=== PATIENT | male | born 1965 | race Caucasian/White ===

== ENCOUNTER 2023-09-19 08:55 | Outpatient (CLI) | payer BC, SELFPAY ==
--- NOTE | ~2023-09-19 | US_ITS ---
EXAMINATION: US thyroid DATE: 09/19/2023 09:39 INDICATION: Disorder of thyroid, unspecified. TECHNIQUE: Multiple ultrasound images of the thyroid were obtained. COMPARISON: None. FINDINGS: The right thyroid lobe measures 5.4 x 1.9 x 2.1 cm. The left thyroid lobe measures 6.7 x 4.0 x 3.7 c m. In the right thyroid lobe, there is a 9 mm solid, isoechoic, wider than tall nodule with ill-defi jaz margin without echogenic foci (TI-RADS TR3). In the left thyroid lobe, there is a 4.8 cm predomin antly solid, isoechoic, wider than tall nodule with ill-defined margin without echogenic foci (TR3). IMPRESSION: 1. Thyroid nodules. Ultrasound-guided fine needle aspiration of the 4.8 cm left thyroid nodule is rec ommended. Reviewed, dictated and finalized at location E. IMPRESSION: 1. Thyroid nodules. Ultrasound-guided fine needle aspiration of the 4.8 cm left thyroid nodule is recommended.
== END 2023-09-19 08:56 ==
PROVIDERS: PCP Otolaryngology; Visit Provider Otolaryngology
DX: E04.2 Nontoxic multinodular goiter (principal)
CPT/HCPCS: 76536

== ENCOUNTER 2023-10-10 07:17 | Outpatient (CLI) | payer BC, SELFPAY | END 2023-10-10 07:18 | disposition home or self-care (01) | LOC: ANHAUDIO 07:18 | PROVIDERS: PCP Otolaryngology; Visit Provider Otolaryngology | DX: H90.6 Mixed conductive and sensorineural hearing loss, bilateral (principal); H93.13 Tinnitus, bilateral; E07.9 Disorder of thyroid, unspecified | CPT/HCPCS: 92552; 92556; 92567 ==

== ENCOUNTER 2023-11-21 12:17 | Outpatient (CLI) | payer BC, SELFPAY ==
--- NOTE | ~2023-11-21 | US_ITS ---
EXAMINATION: US FNA w image guidance DATE: 11/21/2023 13:11 INDICATION: Disorder of thyroid, unspecified. TECHNIQUE: The procedure and its benefits and risks were discussed with the patient. Risks specifically discusse d included bleeding. The patient verbalized understanding of the risks and agreed to proceed. The nec k was prepped and draped in the usual sterile manner. 1% lidocaine was used for local anesthesia. 6 passes were made with a 25G needle into the lesion under ultrasound guidance. There were no immedia te complications. FINDINGS: Grayscale ultrasound images demonstrate needles advanced into a 5.0 cm nodule in left thyroid lobe fo r biopsy. IMPRESSION: 1. Ultrasound-guided fine needle aspiration of a 5.0 cm nodule in left thyroid lobe. Reviewed, dictated and finalized at location A.
== END 2023-11-21 12:18 | disposition home or self-care (01) ==
LOC: ANHIMG 12:19
PROVIDERS: PCP Otolaryngology; Visit Provider Otolaryngology
DX: E04.1 Nontoxic single thyroid nodule (principal)
CPT/HCPCS: 10005; 88172; 88173; 88305

== ENCOUNTER 2024-01-16 00:50 | Day surgery (SDC) | payer BC, SELFPAY ==
[2023-12-29 12:09] VITALS: BMI 29.9
[2024-01-16 06:45] VITALS: BP 125/68; PULSE 87; RESP 16; TEMP 36; O2SAT 96; BMI 29.2
[2024-01-16] MEDS: LACTATED RINGERS 1,000 ML 150 ML IV CONT (07:07)
--- NOTE | 2024-01-16 07:50 | P.HP_ITS ---
History of Present Illness History of Present Illness Consent: Risks, benefits, and alternatives have been discussed and questions answered. Patient agrees to proceed with procedure. Chief complaint: Neoplasm screening Narrative: Ky Soto is a 58 year old male here for colonoscopy, last one 5 years ago, brother had colon cancer Review of Systems Review of Systems: All systems reviewed & are unremarkable except as noted in HPI and below PMFSH Past Medical History Medical History (Updated 01/16/24 @ 07:51 by Kiel Cerna MD) BPH (benign prostatic hyperplasia) Family history of colon cancer Hypercholesterolemia Thyroid mass Family History Family History Father Broken hip Mother Alzheimer disease Sibling , brother Cancer Agent [place] No problems noted. Social History Social History Smoking status: Never smoker Alcohol intake: never Substance use: never Substance use type: does not use Current Housing: Decline to Answer Concerned About Future Housing: Decline to Answer Difficulty Paying Gas/Electric Bills: Decline to Answer Difficulty Paying for Meds: Decline to Answer Currently Unemployed: Decline to Answer Education: Decline to Answer Difficulty w/ Childcare or Family Care: Decline to Answer Living arrangements: with family Spiritual care concerns: No Meds Home Medications and Allergies Home Medications Medication Instructions Recorded Confirmed Type finasteride 5 mg tablet See Rx Instructions .Route 06/20/23 01/16/24 Rx .COMPLEX #90 tabs tamsulosin 0.4 mg capsule 0.4 mg PO DAILY #90 caps 11/09/23 12/29/23 Rx rosuvastatin 10 mg tablet 10 mg PO DAILY #90 tabs 11/21/23 12/29/23 Rx ascorbate calcium (vitamin C) 500 500 mg PO DAILY 12/26/23 12/29/23 History mg tablet Allergies Allergy/AdvReac Type Severity Reaction Status Date / Time No Known Allergies Allergy Verified 01/16/24 06:54 Vital Signs Vital Signs - 24 hr 01/16/24 06:45 Temperature 96.8 F L Pulse Rate 87 Respiratory Rate 16 Blood Pressure 125/68 Pulse Oximetry 96 Oxygen Delivery Room Air Exam Const: General: comfortable and no acute distress HENMT: Face/Nose/Sinus: Normal nares present Eyes: General: appearance normal, both eyes and all related structures Neck: Neck: no JVD Resp: Auscultation: clear to auscultation bilaterally Cardio: Rate: regular rate Rhythm: regular rhythm GI: Inspection: non-distended GI Palp: Yes Soft to palpation Skin: General skin exam: normal color Neuro: General: gait normal Speech: normal speech Extrem: General: normal to inspection Psych: Mental Status: mental status grossly normal Assessment and Plan Assessment and plan (1) Family history of colon cancer: Code(s): Z80.0 - Family history of malignant neoplasm of digestive organs Status: Acute Assessment and Plan: colonoscopy
[2024-01-16 08:12] VITALS: BP 105/74; PULSE 78; RESP 19; O2SAT 98
[2024-01-16 08:22] VITALS: BP 119/82; PULSE 80; RESP 16; O2SAT 98
[2024-01-16 08:32] VITALS: BP 111/83; PULSE 86; RESP 19; O2SAT 98
--- NOTE | 2024-01-23 08:57 | P.PNAN_ITS ---
Anes - Initial Pre Proc Eval Procedure: Operation Date: 01/16/24 08:00 Proposed Procedures p Screening Colonoscopy - Kiel Cerna MD Date/Time: 01/23/24 08:57 Surgeon: Kiel Cerna MD Pre Op Diagnosis: Neoplasm screening Patient Data Age: 58 Gender: M Height: 1.83 m Weight: 98 kg Last Vital Signs Temp 96.8 F L 01/16/24 06:45 Pulse 86 01/16/24 08:32 Resp 19 01/16/24 08:32 BP 111/83 01/16/24 08:32 Pulse Ox 98 01/16/24 08:32 O2 Del Method Room Air 01/16/24 08:32 Allergies Allergy/AdvReac Type Severity Reaction Status Date / Time No Known Allergies Allergy Verified 01/16/24 06:54 Home Medications Medication Instructions Recorded Confirmed Type tamsulosin 0.4 mg capsule 0.4 mg PO DAILY #90 caps 11/09/23 01/16/24 Rx rosuvastatin 10 mg tablet 10 mg PO DAILY #90 tabs 11/21/23 01/16/24 Rx ascorbate calcium (vitamin C) 500 500 mg PO DAILY 12/26/23 01/16/24 History mg tablet finasteride 5 mg tablet See Rx Instructions .Route 01/18/24 Rx .COMPLEX #90 tabs Patient hx anesthesia problems: none Family hx anesthesia problems: none Results Review: All pre-operative results and documents have been reviewed as part of the pre- operative evaluation. [facility] Past Medical History Medical History (Updated 01/16/24 @ 07:51 by Kiel Cerna MD) BPH (benign prostatic hyperplasia) Family history of colon cancer Hypercholesterolemia Thyroid mass Family History Family History Father Broken hip Mother Alzheimer disease Sibling , brother Cancer Agent [place] No problems noted. Social History Social History Smoking status: Never smoker Alcohol intake: never Substance use: never Substance use type: does not use Current Housing: Decline to Answer Concerned About Future Housing: Decline to Answer Difficulty Paying Gas/Electric Bills: Decline to Answer Difficulty Paying for Meds: Decline to Answer Currently Unemployed: Decline to Answer Education: Decline to Answer Difficulty w/ Childcare or Family Care: Decline to Answer Living arrangements: with family Spiritual care concerns: No Anes - Eval Final PreProcedure Day of Procedure 01/23/24 08:57 Patient weight: normal Heart: regular rate and rhythm Lungs: clear to auscultation Airway: Mallampati scale class II Neurological: alert and oriented Last oral intake: >/= 8 hours ASA classification: II Emergent: no Anesthetic plan: proceed Anesthesia type and monitoring: general GIVS and standard monitoring Results Review: All pre-operative results and documents have been reviewed as part of the pre- operative evaluation. Informed Consent: The patient's anesthetic plan and its attendant risks and benefits were discussed with the patient/family/POA. Questions were solicited and answers provided to the satisfaction of the patient/family/POA.
== END 2024-01-16 08:41 | disposition home or self-care (01) ==
PROVIDERS: PCP Internal Medicine; Referring Provider Otolaryngology; Visit Provider Internal Medicine Gastroenterology
PROC: 0DJD8ZZ Inspection of Lower Intestinal Tract, Via Natural or Artificial Opening Endoscopic (ICD-10-PCS; CPT 45378; principal; 2024-01-16 08:00)
DX: Z12.11 Encounter for screening for malignant neoplasm of colon (principal); K64.8 Other hemorrhoids; K57.30 Diverticulosis of large intestine without perforation or abscess without bleeding; N40.0 Benign prostatic hyperplasia without lower urinary tract symptoms; E78.00 Pure hypercholesterolemia, unspecified; Z80.0 Family history of malignant neoplasm of digestive organs
CPT/HCPCS: 45378; J2704; J7120